=== PATIENT | female | born 1960 | race Caucasian/White ===

== ENCOUNTER → 2016-11-23 | Outpatient (CLI) | payer MEDICAID ==
[~2016-11-23] MED LIST: ALPRAZOLAM0.5 MG PO; BENTYL20 MG PO; CEFDINIR 300MG300 MG; CENESTIN0.3 MG PO; CLARITIN 10MG T10 MG PO; DARVOCET-N 1001 EACH PO; FISH OIL CONC1000 MG PO; KEFLEX 500MG.500 MG PO; LORTAB 5/500 501 TAB PO; OMEPRAZOLE20 MG PO; PREDNISONE 20MG20 MG; TYLENOL W/CODEI1 TA2 PO; ULTRAM50 MG PO; VITAMIN B121 TA1 PO; VITAMIN D50000 IU; ZITHROMAX 250M250 MG PO
--- NOTE | 2016-11-27 08:39 | RADIOLOGY REPORT PS360 ---
DIG MAMM-SCREEN JARETT W/CAD CAD Screening ORDERING PHYSICIAN : Uli Jhaveri MD PATIENT AGE: 56 years GENDER: Female COMPARISON:.: Bilateral mammogram. November 2014 an 2015 and October 2013 also 2013 INDICATION: Routine screening. Taking estrogen. No new complaints. Noncontributory family history. TECHNIQUE: Standard CC and MLO images were obtained. R2 CAD reviewed. FINDINGS: Fairly low-density breast with minimal fibroglandular elements bilaterally which are slightly more evident at right breast previous RIGHT BREAST: Stable scattered low-density nodular densities right breast appears stable since 2015 & less evident today than 2014.] Followed safely. LEFT BREAST: Stable left breast with stable small. Area of nodularity laterally. IMPRESSION: Stable bilateral mammogram with no new areas of concern A few Long-standing stable scattered small areas of nodularity bilaterally not of concern. Follow-up in one year adequate 2 BI-RADS CATEGORY: 2_Benign RECOMMENDED FOLLOWUP: 12M 12 MONTH FOLLOW-UP (A letter has been sent to the patient regarding results of the study.)
== END ==
LOC: RAD 09:01
DX: Z12.31 Encounter for screening mammogram for malignant neoplasm of breast (principal)
CPT/HCPCS: G0202